=== PATIENT | male | born 1995 | race African-American/Black ===

== ENCOUNTER 2019-09-09 22:18 | Emergency (ER) | payer OTHER ==
[2019-09-09 22:41] VITALS: BP 142/91
--- NOTE | 2019-09-09 22:58 | ED Physician Documentation ---
History of Present Illness - Stated complaint Stated Complaint: MHE - Chief complaint Chief Complaint: MHE - History obtained from History obtained from: Patient - Additonal information Additional information: PT was sent to the ED via EMS by his flight surgeon after getting a DUI citation this evening and being found by roommates to have scratched his arm at home. The pt states he was not feeling suicidal, but was angry and frustrated with himself. He used a sharp object and cut/scratched his arm once. Pt states this happened a couple of hours ago, and that he had fallen asleep when his roommates came home and saw his arm. They were concerned, and called the flight surgeon, who had pt sent here for evaluation. Pt denies h/o mental health issues. He states he drinks alcohol intermittently, and had several beers tonight. His last drink was several hours ago. No other complaints at this time. Pt denies current suicidal or homicidal ideation. Review of Systems Ten Systems: 10 systems reviewed and negative Constitutional: reports: Reviewed and negative Eyes: reports: Reviewed and negative Ears: reports: Reviewed and negative Nose: reports: Reviewed and negative Throat: reports: Reviewed and negative Cardiac: reports: Reviewed and negative Respiratory: reports: Reviewed and negative GI: reports: Reviewed and negative : reports: Reviewed and negative Skin: reports: Reviewed and negative Musculoskeletal: reports: Reviewed and negative Neurologic: reports: Reviewed and negative Psychiatric: reports: Reviewed and negative Endocrine: reports: Reviewed and negative Immunocompromised: reports: Reviewed and negative PD PAST MEDICAL HISTORY - Past Medical History Past Medical History: Yes Psych: Other Other Past Medical History: Cutting - Past Surgical History Past Surgical History: No - Allergies Allergies/Adverse Reactions: Allergies Allergy/AdvReac Type Severity Reaction Status Date / Time No Known Drug Allergies Allergy Verified 09/09/19 22:35 - Social History Does the pt smoke?: Yes Smoking Status: Current every day smoker Does the pt drink ETOH?: Yes Does the pt have substance abuse?: No - Immunizations Immunizations are current?: Yes - POLST Patient has POLST: No PD ED PE NORMAL - Vitals Vital signs reviewed: Yes - General General: Alert and oriented X 3 (Pt is not currently clinically intoxicated.), No acute distress, Well developed/nourished - HEENT HEENT: Atraumatic, PERRL, EOMI, Moist mucous membranes - Neck Neck: Supple, no meningeal sign - Cardiac Cardiac: RRR, No murmur - Respiratory Respiratory: No respiratory distress, Clear bilaterally - Abdomen Abdomen: Soft, Non tender, Non distended - Derm Derm: Normal color, Warm and dry, No rash, Other (PT has a scratch/linear abrasion of 1-5 mm in width by approximately 20 cm in length, which is very superficial. At the distal-most end, there is a 7 mm linear laceration of approximately 3 mm depth. No FB and bleeding is controlled.) - Extremities Extremities: No deformity - Neuro Neuro: Alert and oriented X 3 - Psych Psych: Normal mood, Normal affect Results - Vitals Vitals: Oxygen O2 Source Room air PD MEDICAL DECISION MAKING - ED course Complexity details: reviewed old records, considered differential, d/w patient ED course: The pt was clinically sober, and adamantly denied suicidal ideation. I spoke with the pt's flight surgeon, who stated he would have the pt seen tomorrow and plugged into alcohol abuse counseling. The pt declined repair of the small laceration on his arm, and stated he just wanted to go home and get some sleep. Pt has roommates and a close follow-up plan, and I felt discharge was reasonable. Pt's superior officer arrived to pick the pt up and escort him back to the [facility]. Departure - Departure Disposition: 01 Home, Self Care Clinical Impression: Stress reaction, Self-mutilation Alcoholic intoxication Qualifiers: Complication of substance-induced condition: uncomplicated Qualified Code(s): F10.920 - Alcohol use, unspecified with intoxication, uncomplicated Condition: Stable Instructions: ED Stress React, ED Alcohol Intoxication Discharge Date/Time: 09/09/19 23:09
== END 2019-09-09 23:09 | disposition home or self-care (01) ==
LOC: ED 22:18
DX: F43.9 Reaction to severe stress, unspecified (principal); X78.9XXA Intentional self-harm by unspecified sharp object, initial encounter; Y92.133 Barracks on military base as the place of occurrence of the external cause; F10.920 Alcohol use, unspecified with intoxication, uncomplicated; F17.200 Nicotine dependence, unspecified, uncomplicated
CPT/HCPCS: 99283; 99284